=== PATIENT | female | born 1990 ===

== ENCOUNTER 2017-12-17 13:47 | Emergency (ER) | payer OTHER ==
[2017-12-17 13:53] VITALS: BP 123/67; PULSE 101; RESP 16; TEMP 98.6; O2SAT 97
--- NOTE | 2017-12-17 14:48 | C.PDOC ---
History Of Present Illness 27 y/o female, w/no significant PMhx, presents to the ER complaining of generalized rash which has been present since the morning today. Patient states that she woke up with a painless red rash over her chest, abdomen, back, arms, and legs; no rash on palms or soles. Patient reports questionable mild itching on the back of her arms. She did not take any medications for the rash. Patient is also complaining of dry cough, she notes that she had flu-like symptoms recently. Denies having fever, chills, difficulty breathing, CP, SOB, sore throat, ear pain, eye redness, and throat swelling. Chief Complaint (Nursing): Abnormal Skin Integrity History Per: Patient History/Exam Limitations: no limitations Onset/Duration Of Symptoms: Hrs Current Symptoms Are (Timing): Still Present Past Medical History Reviewed: Historical Data, Nursing Documentation, Vital Signs Vital Signs: Last Vital Signs Temp 98.6 F 12/17/17 13:50 Pulse 101 H 12/17/17 13:50 Resp 16 12/17/17 13:50 BP 123/67 12/17/17 13:50 Pulse Ox 97 12/17/17 13:50 - Medical History PMH: No Chronic Diseases Surgical History: No Surg Hx - [facility] INCIS W REM OF FORIEGN BODY OR DEV FROM SKIN & SUBCUT TISSUE (02/09/13) TETANUS TOXOID ADMINIST (02/09/13) Family History: States: No Known Family Hx - Social History Hx Tobacco Use: No Hx Alcohol Use: Yes Hx Substance Use: No - Immunization History Hx Tetanus Toxoid Vaccination: No Hx Influenza Vaccination: No Hx Pneumococcal Vaccination: No Review Of Systems Except As Marked, All Systems Reviewed And Found Negative. Constitutional: Negative for: Fever, Chills Eyes: Negative for: Vision Change, Conjunctivae Inflammation, Redness ENT: Negative for: Ear Pain, Throat Pain, Throat Swelling Cardiovascular: Negative for: Chest Pain, Palpitations Respiratory: Positive for: Cough. Negative for: Shortness of Breath Gastrointestinal: Negative for: Nausea, Vomiting, Abdominal Pain, Diarrhea, Constipation Genitourinary: Negative for: Dysuria, Frequency Musculoskeletal: Negative for: Neck Pain, Back Pain Skin: Positive for: Rash Neurological: Negative for: Weakness, Numbness, Headache, Dizziness Physical Exam - Physical Exam Appears: Well, Non-toxic, No Acute Distress Skin: Warm, Dry, Rash (maculopapular blanching erythematous rash to bilateral arms and legs, chest, abdomen, and back), Other (no rash on face, palms, and soles) Head: Atraumatic, Normacephalic, No Tenderness Eye(s): bilateral: Normal Inspection, PERRL, EOMI Ear(s): Bilateral: Normal Nose: Normal Oral Mucosa: Moist Tongue: Normal Appearing Lips: Normal Appearing, Other (no sores) Teeth: Normal Dentition Gingiva: Normal Appearing Throat: Normal, No Erythema, No Exudate Neck: Normal, Normal ROM, Supple Lymphatic: No Adenopathy Chest: Symmetrical Cardiovascular: Rhythm Regular Respiratory: Normal Breath Sounds, No Rales, No Rhonchi, No Wheezing Gastrointestinal/Abdominal: Normal Exam Extremity: Normal ROM, No Tenderness, No Deformity, Other (see skin exam) Extremity: Bilateral: Atraumatic, No Pedal Edema, Normal Color And Temperature, Normal ROM Pulses: Left Radial: Normal, Right Radial: Normal Neurological/Psych: Oriented x3, Normal Speech, Normal Cognition, Normal Cranial Nerves, Normal Motor, Normal Sensation Gait: Steady ED Course And Treatment O2 Sat by Pulse Oximetry: 97 (RA) Pulse Ox Interpretation: Normal Medical Decision Making Medical Decision Making: Initial Plan: --Benadryl PO --Reassurance Impression: Viral Exanthem Plan: --tessalon perles for cough --followup with primary doctor within 2 days --return to Er for worsening symptoms Disposition - Disposition Referrals: [facility] [Outside] Disposition: HOME/ ROUTINE Disposition Time: 14:30 Condition: GOOD Additional Instructions: Increase fluid intake Take cough medicine every 8 hours as needed for cough Practice good hand washing techniques Followup with primary within 2 days Return to ER if symptoms worsen or if you develop a fever, nausea, vomiting, abdominal pain, throat swelling Prescriptions: Benzonatate [Tessalon Perle] 100 mg PO Q8H PRN #21 capsule PRN Reason: Cough Instructions: Viral Exanthem Forms: [facility] (Mongolian), Work Excuse - Clinical Impression Clinical Impression: Viral exanthem, unspecified - PA / [employer] / Resident Statement MD/DO has reviewed & agrees with the documentation as recorded. - Scribe Statement The provider has reviewed the documentation as recorded by the Jordyn Haynes Provider Attestation All medical record entries made by the Jordyn were at my direction and personal ly dictated by me. I have reviewed the chart and agree that the record accurately reflects my personal performance of the history, physical exam, medical decision making, and the department course for this patient. I have also personally directed, reviewed, and agree with the discharge instructions and disposition.
== END 2017-12-17 15:08 | disposition home or self-care (01) ==
LOC: C.ER 13:47
DX: B09 Unspecified viral infection characterized by skin and mucous membrane lesions (principal)